=== PATIENT | female | born 1970 | race Caucasian/White ===

== ENCOUNTER → 2018-12-27 | Outpatient (CLI) | payer BC ==
--- NOTE | 2018-12-27 14:39 | PFTRPT ---
Site: [facility], [address] [place] [address], [id number] ID: [id number] Name: STACEY AZUL Visit Date: 12/27/2018 Second ID: [id number] Referring Doctor: YA SCHNEIDER M.D. Reviewing Doctor: Sanchez Aguilar MD Associate Professor Of Art: Elsie HOLMAN RRT Age: 48 : 1970 Sex: Female Race: Height: 62.00 Inches Weight: 288.00 Lbs BSA: 2.23 Order IDs: [id number] Requested Test(s): <RESP-PFT.DLCO> Diagnosis: J48.0 test meet the ATS standards for acceptability and repeatability. Review Status: Not Reviewed Pre-Bronch Post-Bronch Pred Actual %Pred Actual %Chng SPIROMETRY FVC (L) 3.33 2.41 72 FEV1 (L) 2.66 2.05 77 FEV1/FVC (%) 81 85 105 FEF 25% (L/sec) 5.05 4.91 97 FEF 50% (L/sec) 3.97 2.39 60 FEF 75% (L/sec) 1.48 1.13 76 FEF 25-75% (L/sec) 2.71 2.40 88 FEF Max (L/sec) 6.49 5.58 85 FIVC (L) 2.64 FIF 50% (L/sec) 4.20 2.38 56 FIF Max (L/sec) 2.64 MVV (L/min) 94 72 76 Expiratory Time (sec) 6.99 Back Extrap Vol (L) 0.09 Time To FEFmax (sec) 0.088 LUNG VOLUMES SVC (L) 3.10 2.46 79 IC (L) 2.11 2.36 111 ERV (L) 0.99 0.10 9 TGV (L) 2.64 1.81 68 RV (Pleth) (L) 1.65 1.71 103 TLC (Pleth) (L) 4.75 4.17 87 RV/TLC (Pleth) (%) 34 41 120 DIFFUSION DLCOunc (ml/min/mmHg) 22.11 15.63 70 DL/VA (ml/min/mmHg/L) 4.65 4.41 94 VA (L) 4.75 3.54 74 BHT (sec) 10.45 IVC (L) 2.23 TLC (SB) (L) 3.69 AIRWAYS RESISTANCE Raw (cmH2O/L/s) 1.86 1.91 102 Gaw (L/s/cmH2O) 1.03 0.53 51 sRaw (cmH2O*s) 4.76 3.46 72 sGaw (1/cmH2O*s) 0.20 0.29 145
== END ==
LOC: M CARPUL 10:51
PROVIDERS: ATTEND Internal Medicine Cardiovascular Disease
DX: I48.0 Paroxysmal atrial fibrillation (principal); G47.33 Obstructive sleep apnea (adult) (pediatric)